=== PATIENT | male | born 1980 | race Caucasian/White ===

== ENCOUNTER 2020-04-08 07:46 | Emergency (ER) | payer OTHER, SELFPAY ==
[2020-04-08 07:50] VITALS: BP 149/86; PULSE 75; RESP 16; TEMP 36.1; O2SAT 100
--- NOTE | 2020-04-08 08:30 | ED.BACK ---
HPI - Back Pain/Injury General Chief Complaint: Back Pain/Injury Stated Complaint: back pain Time Seen by Provider: 04/08/20 07:53 History of Present Illness HPI Narrative: Patient is a 39-year-old male who presents ER with back pain. Reports he was sleeping and woke up with sharp back pain in his left side. Worse when he twists. Has history of some back issues on the same side. Has not taking pain medication. No numbness or tingling in his lower extremities or groin. Pain does can wrap around his chest wall. Related Data Home Medications Medication Instructions Recorded Confirmed aspirin [Adult Aspirin EC Low 04/08/20 Strength] Allergies Allergy/AdvReac Type Severity Reaction Status Date / Time ibuprofen Allergy Intermediate Hives / Verified 04/08/20 08:07 Red Face Review of Systems Constitutional: Constitutional: Denies chills and Denies fever(s) Musculoskeletal: Musculoskeletal: Reports back pain, Denies arthralgias and Reports muscle cramps Neurologic: Denies focal weakness and Denies numbness PMFSH Past Medical History Medical History (Updated 04/08/20 @ 08:39 by Goran Smith MD) Healthy adult male Surgical History Surgical History (Updated 05/20/19 @ 08:54 by Graciela Schmidt) No pertinent past surgical history Family History Family History (Updated 05/20/19 @ 08:55 by Graciela Schmidt) Father Acute myocardial infarction, Onset Age: 50 Hypertension Social History Social History (Updated 05/20/19 @ 08:55 by Graciela Schmidt) Smoking status: Never smoker Gender identity (if verbalized by the patient): Male Exam Narrative: Exam Narrative: GENERAL: Well-appearing, well-nourished, and in no acute distress. HEAD: Normocephalic, atraumatic. ENT: Mucous membranes moist. CHEST: Clear to auscultation. No respiratory distress. BACK: No midline tenderness of thoracic or lumbar spine. There is left paraspinal muscular tenderness in the lower thoracic spine with palpable spasm. SKIN: Warm, dry, no rash. NEURO: Alert and oriented x3. Course Course Emergency Course: No trauma. No neuro symptoms. Will start on naproxen as he reports he is taking this in the past without issue. We will also prescribe Skelaxin for relaxation musculature. Vital Signs Vital signs: Vital Signs Temperature 97 F L 04/08/20 07:50 Pulse Rate 75 04/08/20 07:50 Respiratory Rate 16 04/08/20 07:50 Blood Pressure 149/86 H 04/08/20 07:50 Pulse Oximetry 100 04/08/20 07:50 Temperature 97 F L 04/08/20 07:50 Pulse Rate 75 04/08/20 07:50 Respiratory Rate 16 04/08/20 07:50 Blood Pressure 149/86 H 04/08/20 07:50 Pulse Oximetry 100 04/08/20 07:50 Discharge Plan Discharge Clinical Impression: Paraspinal muscle spasm Patient Disposition: Home, Self-Care Condition: Stable Instructions: Muscle Spasm (ED), Lower Back Exercises (ED) Additional Instructions: Return to the ER if you have increased pain in your back, you develop lower extremity weakness/numbness/paralysis, you have numbness or tingling in your private parts, or you are unable to control your ability to urinate/stool. Prescriptions: New naproxen 500 mg tablet 500 mg PO BID Qty: 20 RF: 0 metaxalone [Skelaxin] 800 mg tablet 800 mg PO TID Qty: 20 RF: 0 No Action aspirin [Adult Aspirin EC Low Strength] 81 mg Tablet,Delayed Release (Dr/Ec) RF: 0 Follow-up/Referrals: Isidro,MD Tarik [Primary Care Provider] - 1 Week
== END 2020-04-08 09:00 | disposition home or self-care (01) ==
PROVIDERS: Emergency Provider Emergency Medicine; PCP Internal Medicine
DX: M62.830 Muscle spasm of back (principal)
CPT/HCPCS: 99283

== ENCOUNTER 2020-06-30 03:10 | Emergency (ER) | payer OTHER, SELFPAY ==
[2020-06-30] VITALS (18 sets, daily range): BP systolic 131–190; BP diastolic 77–104; PULSE 62–84; RESP 13–19; TEMP 36.5; O2SAT 97–100
--- NOTE | ~2020-06-30 | XR_ITS ---
EXAMINATION: XR chest 2V DATE: 06/30/2020 07:07 INDICATION: Chest pain TECHNIQUE: PA and lateral views of the chest are obtained. COMPARISON: None available FINDINGS: The lungs are free of acute opacities. There is no pleural effusion or pneumothorax. The ca rdiomediastinal silhouette is normal. The visualized bones and soft tissues are unremarkable. IMPRESSION: 1. No acute cardiopulmonary abnormality. Reviewed, dictated and finalized at location A. [employer]
--- NOTE | 2020-06-30 03:40 | ED.CHESTPAIN ---
HPI - Chest Pain General Chief Complaint: Chest Pain Stated Complaint: cp, sob Time Seen by Provider: 06/30/20 03:28 Source: patient Mode of arrival: ambulatory Limitations: no limitations History of Present Illness HPI narrative: This patient is a 39 year old male who presents for right sternal chest pain. Patient reports around 1 am he had sharp chest pain. He states the chest pain initially subsided so he went back to sleep. He reports he woke up an hour later with sharp chest pain again. This pain only lasted minutes. He felt pain when he was stretching. He denies having any pain currently. He denies his pain radiating to his arms, back, neck or abdominal pain. He denies cough, fever, chills, nausea or vomiting. He denies focal weakness. He reports having a normal stress test performed 1 year ago due to family history of heart disease. He states his father had an PA in his 50s. Related Data Home Medications Medication Instructions Recorded Confirmed aspirin [Adult Aspirin EC Low 04/08/20 Strength] Allergies Allergy/AdvReac Type Severity Reaction Status Date / Time ibuprofen Allergy Intermediate Hives / Verified 06/30/20 03:16 Red Face Review of Systems Review of Systems: All systems reviewed & are unremarkable except as noted in HPI and below PMFSH Past Medical History Medical History (Updated 06/30/20 @ 07:17 by Danielle Rodriguez MD) Healthy adult male Surgical History Surgical History (Updated 05/20/19 @ 08:54 by Graciela Schmidt) No pertinent past surgical history Family History Family History (Updated 05/20/19 @ 08:55 by Graciela Schmidt) Father Acute myocardial infarction, Onset Age: 50 Hypertension Social History Social History (Updated 05/20/19 @ 08:55 by Graciela Schmidt) Smoking status: Never smoker Gender identity (if verbalized by the patient): Male Sexual Orientation (if Verbalized by the Patient): Straight or Heterosexual Exam Narrative: Exam Narrative: GENERAL: Well-appearing, well-nourished, and in no acute distress. HEAD: Normocephalic, atraumatic EYES: PERRLA and EOMI, conjunctiva clear without discharge THROAT:Mucous membranes moist, Oropharynx normal without erythema, exudate, peritonsillar swelling or fluctuance NECK: Supple, without lymphadenopathy or mass RESPIRATORY: No respiratory distress, Airway patent, Respirations non-labored, Clear to auscultation without rales, rhonchi or wheeze HEART: Regular rate and rhythm. No murmur heard. Normal peripheral pulses. ABDOMEN: Soft, nontender, nondistended, normal active bowel sounds. No masses. No rebound or guarding, No organomegaly. EXTREMITIES: No edema, normal strength with full range of motion. SKIN: Warm, dry, normal color without rash NEURO: Alert and oriented x3. CN 2-12 grossly intact. No focal deficits. PSYCH: Normal mood and affect. Course Reevaluation(s) Reevaluation #1: Patient continue to deny chest pain. HE is PERC negative. This does not appear to be consistent with aortic etiology. His pain is atypical. Date: 06/30/20 Time: 06:54 Vital Signs Vital signs: Vital Signs Temperature 97.7 F 06/30/20 03:12 Pulse Rate 84 06/30/20 03:12 Respiratory Rate 18 06/30/20 03:12 Blood Pressure 161/90 H 06/30/20 03:12 Pulse Oximetry 100 06/30/20 03:12 Temperature 97.7 F 06/30/20 03:12 Pulse Rate 67 06/30/20 05:58 Respiratory Rate 18 06/30/20 05:58 Blood Pressure 131/85 06/30/20 05:58 Pulse Oximetry 100 06/30/20 05:58 MDM - Chest Pain Lab Data Attestation: I reviewed the patient's lab results. Result diagrams: 06/30/20 03:48 06/30/20 03:48 Labs: Lab Results 06/30/20 06/30/20 06/30/20 Range/Units 03:48 03:48 03:48 WBC 8.6 (4.5-10.0) K/mm3 RBC 4.84 (4.6-6.20) M/mm3 Hgb 15.8 (14.0-18.0) g/dL Hct 44.5 (42.0-52.0) % MCV 91.9 (80-100) fl MCH 32.6 (26-34) pg
[2020-06-30 03:52] LABS: Basophils Absolute Auto 0.1 K/mm3 (0.0-0.1); Basophils Percent Auto 0.7 % (0.2-1.2); Eosinophils Absolute Auto 0.2 K/mm3 (0-0.3); Hematocrit 44.5 % (42.0-52.0); Hemoglobin 15.8 g/dL (14.0-18.0); Immature Granulocyte Absolute 0.05 K/mm3 (0.00-0.031); Immature Granulocyte Percent A 0.6 % (0-0.5); Lymphocytes Absolute Auto 3.24 K/mm3 (0.9-3.2); Lymphocytes Percent Auto 37.5 % (18.3-44.2); Mean Corpuscular HGB Conc 35.5 g/dl (32-36); Mean Corpuscular Hemoglobin 32.6 pg (26-34); Mean Corpuscular Volume 91.9 fl (80-100); Monocytes Percent Auto 11.4 % (2.6-8.5); Neutrophils Absolute Auto 4.1 K/mm3 (1.3-6.7); Neutrophils Percent Auto 47.8 % (45.5-73.1); Platelet Count Result 192 k/mm3 (150-375); Red Blood Count 4.84 M/mm3 (4.6-6.20); White Blood Count 8.6 K/mm3 (4.5-10.0)
[2020-06-30 04:03] LABS: INR 0.9; Prothrombin Time 12.5 Seconds (11.1-14.7)
[2020-06-30 04:05] LABS: Anion Gap 7 mmol/L (8-16); Blood Urea Nitrogen 16 mg/dL (9-20); Calcium 8.8 mg/dL (8.4-10.2); Carbon Dioxide 30 mmol/L (22-30); Chloride 102 mmol/L (98-107); Estimated CRCL calculation 101 ml/min; Estimated Glomerular Filt Rate > 60; Glucose 95 mg/dL (75-110); Potassium 3.6 mmol/L (3.4-5.0); Sodium 139 mmol/L (137-145)
[2020-06-30 04:17] LABS: Troponin I < 0.012 ng/mL (0.000-0.034)
--- NOTE | 2020-06-30 05:58 | PC.NURSE ---
Right Arm - 140/97 (112) Right Leg - 189/104 (128) Left Leg - 190/95 (117) Left Arm - 131/85 (99)
[2020-06-30 07:06] LABS: Troponin I < 0.012 ng/mL (0.000-0.034)
--- NOTE | 2020-06-30 07:10 | PC.NURSE ---
rn report given to kenny
--- NOTE | 2020-06-30 10:02 | ECG_ITS ---
Measurements Intervals [place] Rate: 85 P: 56 CO: 140 QRS: 28 QRSD: 109 T: 36 QT: 367 QTc: 438 Interpretive Statements SINUS RHYTHM INCOMPLETE RIGHT BUNDLE BRANCH BLOCK BASELINE ARTIFACT- II, III, AVR, AVL, AVF BORDERLINE ECG Electronically Signed On 06-30-2020 12:00:56 TAX APPR[employer]ISER by Farhan Patten D.O.
== END 2020-06-30 07:15 | disposition home or self-care (01) ==
PROVIDERS: Emergency Provider General Practice; PCP Internal Medicine
DX: R07.89 Other chest pain (principal); Z79.82 Long term (current) use of aspirin; I45.10 Unspecified right bundle-branch block
CPT/HCPCS: 36415; 71046; 80048; 84484; 85025; 85610; 85730; 93005; 99284

== ENCOUNTER 2022-12-27 18:07 | Emergency (ER) | payer OTHER, SELFPAY ==
[2022-12-27 18:21] VITALS: BP 150/83; PULSE 76; RESP 16; TEMP 36.6; O2SAT 98
--- NOTE | 2022-12-27 18:32 | ED.SKABFB ---
HPI - Skin/Abscess/Foreign Bdy General Chief complaint: Skin/Abscess/Foreign Body Stated complaint: gash on right leg that may be infected Source: patient and RN notes reviewed Mode of arrival: ambulatory Limitations: no limitations History of Present Illness HPI narrative: Patient is a 42-year-old male who presents to [facility] with possible wound infection. Patient states that on December 16, he was anchoring a pontoon boat when he was punctured by a part of the boat on his right medial lower leg. Patient states that he noticed redness and swelling around the wound 2 days ago. He denies known drainage. Denies recent fevers. Denies history of MRSA. Related Data Allergies Allergy/AdvReac Type Severity Reaction Status Date / Time No Known Allergies Allergy Verified 12/27/22 18:32 Review of Systems Review of Systems: CONSTITUTIONAL: Denies fever, chills, or sweats. EYES: Denies visual changes, redness, or discharge. ENT: Denies otalgia and sore throat CARDIOVASCULAR: Denies chest pain, palpitations, or edema. RESPIRATORY: Denies cough or dyspnea. GASTROINTESTINAL: Denies abdominal pain, nausea, vomiting, or diarrhea. GENITOURINARY: Denies dysuria or hematuria. SKIN: Denies rash or itching. Puncture wound to right medial lower leg with surrounding redness and swelling. MUSCULOSKELETAL: Denies back pain, joint pain, or myalgia. NEUROLOGIC: Denies headache, numbness, or weakness. Pertinent positives per HPI. [facility] Past Medical History Medical History Healthy adult male Surgical History Surgical History (Updated 05/20/19 @ 08:54 by Graciela Schmidt) No pertinent past surgical history Family History Family History Father Acute myocardial infarction, Onset Age: 50 Hypertension Social History Social History Smoking status: Never smoker Gender identity (if verbalized by the patient): Male Sexual Orientation (if Verbalized by the Patient): Straight or Heterosexual Comments At the time of my signature, I reviewed and agree with the nursing past medical, surgical, social, and family history. There is no relevant family history pertinent to the patient complaint. Exam Narrative: GENERAL: This is a well-nourished, well-developed patient, in no apparent distress. HEAD: normocephalic, atraumatic. EYES: Sclera clear/white. Vision is grossly intact. EARS: External ears normal. Hearing grossly intact. NOSE: External nose normal with no obvious nasal discharge, nares without redness, no rhinorrhea. THROAT: Mucous membranes moist, posterior pharynx clear. NECK: Neck supple, non-tender without lymphadenopathy, masses or thyromegaly. CARDIOVASCULAR: Regular rate and rhythm without murmurs, gallops, or rubs. RESPIRATORY: Clear to auscultation. Breath sounds equal bilaterally. No wheezes, rales, or rhonchi. GASTROINTESTINAL: Abdomen soft, non-tender, nondistended. Bowel sounds are active. No hepato-splenomegaly, or palpable masses. No guarding. SKIN: Puncture wound with centered scab noted to the right medial lower leg. There is surrounding erythema and swelling. Warmth noted. No active drainage. NEURO: awake, alert, and oriented to person, place and time. There were no obvious focal neurologic abnormalities. EXTREMITIES: No clubbing, cyanosis, or edema. No joint tenderness, effusion, or edema noted. Course Course Level of Care: Express Care Visit Vital Signs Vital signs: Vital Signs Temperature 98 F 12/27/22 18:21 Pulse Rate 76 12/27/22 18:21 Respiratory Rate 16 12/27/22 18:21 Blood Pressure 150/83 H 12/27/22 18:21 Pulse Oximetry 98 12/27/22 18:21 Temperature 98 F 12/27/22 18:21 Pulse Rate 76 12/27/22 18:21 Respiratory Rate 16 12/27/22 18:21 Blood Pressure 150/83 H 12/27/22 18:21 Pulse Oximetry 9
== END 2022-12-27 18:40 | disposition home or self-care (01) ==
PROVIDERS: Emergency Provider Nurse Practitioner; PCP Internal Medicine
DX: L03.115 Cellulitis of right lower limb (principal)
CPT/HCPCS: 99213; G0463

== ENCOUNTER 2023-12-30 07:15 | Emergency (ER) | payer OTHER, SELFPAY ==
--- NOTE | ~2023-12-30 | CT_ITS ---
EXAMINATION: CT abdomen pelvis wo con DATE: 12/30/2023 09:45 INDICATION: 3 hours of right flank pain TECHNIQUE: Computed tomography (CT) of the abdomen and pelvis was performed without intravenous contr ast. Automated exposure control and iterative reconstruction technique were employed. The dose-length product was 432.65 mGy-cm. COMPARISON: 06/19/2018 FINDINGS: Mild discoid atelectasis in the lingula and mild dependent atelectasis in the bilateral lower lobes. Heart size is normal. No pericardial or pleural effusion. Liver, gallbladder, spleen, pancreas, bilat eral adrenal glands and kidneys are normal. 2-3 mm stone in the distalmost right ureter, 1 cm from th e ureterovesicular junction. No hydroureteronephrosis. No other urolithiasis. Bowels including the ap pendix are normal. Bladder is normal. No free intraperitoneal gas or fluid. No pathologically enlarge d abdominal or pelvic lymphadenopathy. Chronic likely physiologic mild anterior wedging at T11 and T1 2. Mild thoracic and lumbar spondylosis. IMPRESSION: 1. Nonobstructing 2-3 mm stone at the distalmost right ureter. Reviewed, dictated and finalized at location A.
[2023-12-30 07:20] VITALS: BP 152/88; PULSE 77; RESP 18; TEMP 36.5; O2SAT 100
[2023-12-30 07:48] LABS: Basophils Absolute Auto 0.1 K/mm3 (0.0-0.1); Basophils Percent Auto 0.9 % (0.2-1.2); Eosinophils Absolute Auto 0.1 K/mm3 (0-0.3); Eosinophils Percent Auto 1.5 % (0-4.4); Hematocrit 46.8 % (42.0-52.0); Hemoglobin 16.5 g/dL (14.0-18.0); Immature Granulocyte Absolute 0.03 K/mm3 (0.00-0.031); Immature Granulocyte Percent A 0.4 % (0-0.5); Lymphocytes Absolute Auto 2.68 K/mm3 (0.9-3.2); Lymphocytes Percent Auto 33.1 % (18.3-44.2); Mean Corpuscular HGB Conc 35.3 g/dl (32-36); Mean Corpuscular Hemoglobin 32.3 pg (26-34); Mean Corpuscular Volume 91.6 fl (80-100); Mean Platelet Volume 11.2 fl (7.4-10.4); Monocytes Percent Auto 12.1 % (2.6-8.5); Neutrophils Absolute Auto 4.2 K/mm3 (1.3-6.7); Platelet Count Result 204 k/mm3 (150-375); Red Blood Count 5.11 M/mm3 (4.6-6.20); Red Cell Distribution Width 12.1 % (11.5-14.5); White Blood Count 8.1 K/mm3 (4.5-10.0)
[2023-12-30 07:59] LABS: Alanine Aminotransferase 43 U/L (6-50); Alkaline Phosphatase 65 U/L (38-126); Anion Gap 12 mmol/L (4-12); Aspartate Amino Transferase 31 U/L (17-59); Bilirubin,Total 0.8 mg/dL (0.2-1.3); Blood Urea Nitrogen 19 mg/dL (9-20); Calcium 9.1 mg/dL (8.4-10.2); Carbon Dioxide 27 mmol/L (22-30); Chloride 102 mmol/L (98-107); Estimated Glomerular Filt Rate > 60; Glucose 129 mg/dL (65-110); Potassium 3.5 mmol/L (3.4-5.0); Sodium 141 mmol/L (137-145)
[2023-12-30 08:03] LABS: Appearance Urine Cloudy (Clear); Bacteria Urine None Seen /hpf; Bilirubin Urine Negative (Negative); Blood Urine 3+ (Negative); Calcium Oxalate Crystals Urine Present /hpf; Color Urine Dark Yellow (Yellow); Glucose Urine UA Negative (Negative); Ketones Urine Negative (Negative); Leukocyte Esterase Ur Negative LEU/UL (Negative); Need Manual Microscopic Reviewed; Nitrate Urine Negative (Negative); Non Pathogenic Casts 0-2; Protein Urine 1+ mg/dL (Negative); RBC Urine >100 /hpf (0-2); Specific Grav Ur 1.029 (1.001-1.035); Squamous Epithelial Cell Urine Occasional /hpf (Few); WBC Urine 0-5 /hpf (0-3); pH Urine 5.5 (5.0-9.0)
[2023-12-30 08:05] LABS: Add Urine Microscopic? YES
--- NOTE | 2023-12-30 08:46 | ED.MALEGU ---
HPI - Male Genitourinary General Chief complaint: Urogenital-Male Stated complaint: unable to void Time Seen by Provider: 12/30/23 08:46 Source: patient Mode of arrival: ambulatory Limitations: no limitations History of Present Illness HPI Narrative: Woke up this morning with right flank pain and trouble urinating. He denies any fever, chills, vomiting. Patient reports intermittent nausea. History of kidney stone, currently patient is pain-free. Related Data Allergies Allergy/AdvReac Type Severity Reaction Status Date / Time ibuprofen Allergy Hives Verified 12/30/23 07:28 Review of Systems Review of Systems: All systems reviewed & are unremarkable except as noted in HPI and below PMFSH Past Medical History Medical History Healthy adult male Surgical History Surgical History No pertinent past surgical history Family History Family History Father Acute myocardial infarction, Onset Age: 50 Hypertension Social History Social History Smoking status: Never smoker Gender identity (if verbalized by the patient): Male Sexual Orientation (if Verbalized by the Patient): Straight or Heterosexual Exam Narrative: General appearance: Well-developed, well-nourished Skin: Normal color Head: Normocephalic, nontraumatic Eyes: Clear conjunctiva ENT: Oropharynx normal, ears normal, nose normal Neck: Supple, nontender Chest and respiratory: Airway patent, no respiratory distress, no accessory muscle use Heart: Regular rate/rhythm Abdomen: Soft, nontender, no organomegaly, quiet bowel sounds Vascular: Normal peripheral pulses, normal capillary refill. Musculoskeletal: Normal range of motion, nontender back Neurologic: Alert and oriented ?3, [employer] is normal as tested, no gross motor deficit Course Vital Signs Vital signs: Vital Signs Temperature 36.5 C 12/30/23 07:20 Pulse Rate 77 12/30/23 07:20 Respiratory Rate 18 12/30/23 07:20 Blood Pressure 152/88 H 12/30/23 07:20 Pulse Oximetry 100 12/30/23 07:20 Oxygen Delivery Room Air 12/30/23 07:20 Temperature 36.5 C 12/30/23 07:20 Pulse Rate 72 12/30/23 09:59 Respiratory Rate 19 12/30/23 09:59 Blood Pressure 116/72 12/30/23 09:59 Pulse Oximetry 100 12/30/23 09:59 Oxygen Delivery Room Air 12/30/23 07:20 MDM - Male Genitourinary MDM Narrative Medical decision making narrative: Differential diagnosis include urinary tract infection, kidney stone, muscle flank pain Blood workup today showed unremarkable abnormality, urinalysis showed 3+ blood consistent with possible kidney stone CT abdomen and pelvis with IV contrast showed nonobstructing 3 mm stone at the but this tell right ureter At the time of discharge patient feeling much better, asymptomatic, pain-free Differential Diagnosis Differential diagnosis: Likely other (As above) Medical Records Attestation: I reviewed the patient's medical records. Lab Data Attestation: I reviewed the patient's lab results. 12/30/23 07:42 12/30/23 07:42 Labs: Lab Results 12/30/23 Range/Units 07:42 WBC 8.1 (4.5-10.0) K/mm3 RBC 5.11 (4.6-6.20) M/mm3 Hgb 16.5 (14.0-18.0) g/dL Hct 46.8 (42.0-52.0) % MCV 91.6 (80-100) fl MCH 32.3 (26-34) pg MCHC 35.3 (32-36) g/dl RDW 12.1 (11.5-14.5) % Plt Count 204 (150-375) k/mm3 MPV 11.2 H (7.4-10.4) fl Immature Gran % (Auto) 0.4 (0-0.5) % Neut % (Auto) 52.0 (45.5-73.1) % Lymph % (Auto) 33.1
[2023-12-30] MEDS: SODIUM CHLORIDE 0.9% IV 1,000 ML 999 ML IV CONT (09:02)
[2023-12-30 09:59] VITALS: BP 116/72; PULSE 72; RESP 19; O2SAT 100
[2023-12-30] MEDS: TAMSULOSIN HCL 0.4 MG CAPSULE PO (11:00)
== END 2023-12-30 11:07 | disposition home or self-care (01) ==
PROVIDERS: Emergency Provider Emergency Medicine; PCP Internal Medicine
DX: N20.0 Calculus of kidney (principal)
CPT/HCPCS: 36415; 74176; 80053; 81001; 85025; 96360; 99284; A9270; J7030